=== PATIENT | female | born 1985 | race Caucasian/White ===

== ENCOUNTER 2025-04-27 13:22 | Outpatient (CLI) | payer BC, SELFPAY ==
--- NOTE | 2025-04-27 13:00 | MR_ITS ---
WS: [id number] MRA HEAD TECHNIQUE: Axial 3-D TOF images obtained with axial images and axial, sagittal, and coronal 2-D reformatted images. CLINICAL INFORMATION: G93.2 - Benign intracranial hypertension COMPARISON: None. FINDINGS: Distal vertebral arteries are patent. Basilar artery is patent. Normal vascularity to the [employer] territory bilaterally. Both ICAs are patent at the skull base. Normal vascularity to the LENI and MCA territories bilaterally. Patent intercommunicating artery. No evidence of proximal flow-limiting stenosis. Low-lying cerebellar tonsils at the edge of the [id number]. 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 This can be further evaluated with MRI head. Fourth ventricle appears normal. No prior intracranial imaging. MR/MR angio head wo con [id number] IMPRESSION: 1. Normal intracranial MRA. 2. 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 This would be better visualized with MRI head. Fourth ventricle ap pears normal.
== END 2025-04-27 13:23 | disposition home or self-care (01) ==
LOC: RAD 13:25
PROVIDERS: Visit Provider Family Medicine
DX: G93.2 Benign intracranial hypertension (principal); R51.9 Headache, unspecified; H91.93 Unspecified hearing loss, bilateral; Q04.8 Other specified congenital malformations of brain
CPT/HCPCS: 70544

== ENCOUNTER 2025-04-27 15:14 | Outpatient (CLI) | payer BC, SELFPAY ==
[2025-04-27] MEDS: gadobenate dimeglumine 20 mL vial 14 ML IV (16:09)
--- NOTE | 2025-04-27 17:30 | MR_ITS ---
WS: [id number] MRI HEAD WITH CONTRAST TECHNIQUE: Sagittal T1, T2 axial, T2 axial FLAIR, axial susceptibility weighted imaging, axial diffusion weighted images, and coronal T2 images were obtained. Pre and post-T1 axial and post T1 coronal images. ADC and FSPGR images. CLINICAL INFORMATION: R51.9 - Headache, unspecified COMPARISON: None. FINDINGS: No evidence of restricted diffusion to suggest acute ischemia. Ventricular system and basal cisterns are patent. Incidental slight low-lying cerebellar tonsils. No Chiari malformation. Normal fourth ventricle no hydrocephalus. Normal posterior fossa. Normal vascular flow voids at the skull base. No extra- axial fluid collections. No evidence of mass or mass effect. Incidental perivascular spaces LEFT basal ganglia. Normal posterior nasopharynx. Mucosal thickening in the sphenoid sinus with a small amount of fluid. Mastoid air cells are well aerated. No hemosiderin on the susceptibly weighted images. Normal optic chiasm and pituitary infundibulum. Temporal lobes and hippocampal formations are normal in appearance. No abnormal gadolinium enhancement. MR/MR head wo/w con [id number] IMPRESSION: 1. No evidence of restricted diffusion to suggest acute ischemia. 2. No suspicious intracranial signal abnormalities. 3. Incidental slightly low-lying cerebellar tonsils. Normal fourth ventricle. No hydrocephalus. 4. No abnormal gadolinium enhancement. 5. No other remarkable findings. 6. Mucosal thickening with a small amount of fluid in the sphenoid sinus peterson tible with sphenoid sinusitis.
== END 2025-04-27 15:15 | disposition home or self-care (01) ==
LOC: RAD 15:15
PROVIDERS: Visit Provider Family Medicine
DX: R51.9 Headache, unspecified (principal); G93.2 Benign intracranial hypertension; J35.8 Other chronic diseases of tonsils and adenoids
CPT/HCPCS: 70553